=== PATIENT | male | born 1950 | race Two or more races ===

== ENCOUNTER 2017-09-11 07:31 | Emergency (ER) | payer OTHER ==
[2017-09-11] MEDS: HYDROcodone/APAP 5/325MG 1 TAB TABLET PO (08:32)
[2017-09-11] MEDS: diazePAM 5 MG TABLET PO (08:32)
[2017-09-11] MEDS: KETOROLAC 60 MG/2 ML INJ. IM (08:33)
== END 2017-09-11 08:53 | disposition home or self-care (01) ==
LOC: ER 07:31
DX: S39.012A Strain of muscle, fascia and tendon of lower back, initial encounter (principal); I10 Essential (primary) hypertension; E78.00 Pure hypercholesterolemia, unspecified; E11.9 Type 2 diabetes mellitus without complications; F17.200 Nicotine dependence, unspecified, uncomplicated; X50.9XXA Other and unspecified overexertion or strenuous movements or postures, initial encounter; Y93.89 Activity, other specified; Y99.8 Other external cause status; Y92.89 Other specified places as the place of occurrence of the external cause
CPT/HCPCS: 96372; 99283-25; J1885

== ENCOUNTER 2018-05-28 15:04 | Inpatient (IN) | payer OTHER ==
[~2018-05-28] VITALS: Ht 177.8 cm; Wt 95.3 kg
[~2018-05-28 15:04] MED LIST: DIAZ5TAB PO; DICL50TA4 PO
--- NOTE | 2018-05-28 15:46 | PHYS DOC ---
Past Medical History Past Medical History: Diabetes-Type II, High Cholesterol, Hypertension Past Surgical History: Other Additional Past Surgical Histo: uvula, nasal-diviated septum Alcohol Use: Rarely Drug Use: None Adult General Chief Complaint Chief Complaint: CHEST PAIN HPI HPI 67 y/o male presents to ER for c/o lt side chest throbbing radiating into his lt arm for 3-4 days. He reports pain increases with lifting of lt arm. He denies injury/falls. He reports he has been shoveling snow multiple times in past week. He denies SOA, fever, N/V/D, abd pain, or urinary sxs. He reports he has had frontal BUSCH denying eye pain, dizziness, or light headedness. He reports last wk he did have lt ear pressure- denies pain or pressure currently. He denies recent illness. Pt reports he is daily smoker <1ppd cigarettes. He reports occasional drinker- had a couple drinks on . Pt flew to [place] last month. 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 Review of Systems Review of Systems Constitutional: Denies fever or chills. Denies fatigue Eyes: Denies change in visual acuity, redness, or eye pain [] HENT: Denies nasal congestion or sore throat [] Respiratory: Denies cough or shortness of breath [] Cardiovascular: Lt side chest throbbing radiating into lt arm GI: Denies abdominal pain, nausea, vomiting, bloody stools or diarrhea [] : Denies dysuria or hematuria [] Musculoskeletal: Denies back/neck pain. Reports lt arm pain which increases with ROM Integument: Denies rash, swelling or skin lesions [] Neurologic: Denies headache, focal weakness or sensory changes [] Endocrine: Denies polyuria or polydipsia [] All other systems were reviewed and found to be within normal limits, except as documented in this note. Current Medications Current Medications Current Medications Medications (Trade) Dose Ordered Sig/Martha Start Time Stop Time Status Last Admin Dose Admin Acetaminophen (Tylenol) 650 mg 1X ONCE 05/28/18 16:00 05/28/18 16:01 DC 05/28/18 16:23 650 MG Sodium Chloride 500 ml @ 500 mls/hr 1X ONCE 05/28/18 16:00 05/28/18 16:59 DC 05/28/18 16:00 500 MLS/HR Allergies Allergies Allergies Coded Allergies Type Severity Reaction Last Updated Verified No Known Drug Allergies 08/02/14 No Physical Exam Physical Exam Constitutional: Well developed, well nourished, no acute distress, non-toxic appearance. Clear speech HENT: Normocephalic, atraumatic, bilateral ears normal, oropharynx moist- no pharyngeal erythema- pt has had uvulectomy, nose normal. [] Eyes: 3mm PERRLA, no nystagmus, conjunctiva normal, no discharge. [] Neck: Normal range of motion, no tenderness, supple, no stridor. [] Cardiovascular: Bradycardic heart rate regular rhythm- pt reports HR is typically low 50s, no murmur [] Lungs & Thorax: Bilateral breath sounds clear to auscultation. Resp. equal/ nonlabored Abdomen: Bowel sounds normal, soft, no tenderness Skin: Warm, dry, no erythema, no rash. [] Back: No tenderness, no CVA tenderness. [] Extremities: No tenderness on palp. with ROM of lt arm he reports pain with movement in lt anterior/axillary, no cyanosis, no clubbing, ROM intact, no edema. 2+ bilat. radial. 2+ dorsalis pedis/posterior tibial Neurologic: Alert and oriented X 3, normal motor function, normal sensory function, no focal deficits noted. [] Psychologic: Affect normal, judgement normal, mood normal. [] Current Patient Data Vital Signs Vital Signs Date Time Temp Pulse Resp B/P (MAP) Pulse Ox O2 Delivery O2 Flow Rate FiO2 05/28/18 16:19 44 145/83 (103) 99 Room Air Lab Values Laboratory Tests Test 05/28/18 15:20 White Blood Count 6.2 x10^3/uL (4.0-11.0) Red Blood Count 4.80 x10^6/uL (4.30-5.70) Hemoglobin 14.7 g/dL (13.0-17.5) Hematocrit 44.4 % (39.0-53.0) Mean Corpuscular Volume 93 fL (79-100) Mean Corpuscular Hemoglobin 31 pg (25-35) Mean Corpuscular Hemoglobin Concent 33 g/dL (31-37) Red Cell Distribution Width 13.2 % (11.5-14.5) Platelet Count 214 x10^3/uL (140-400) Neutrophils (%) (Auto) 55 % (31-73) Lymphocytes (%) (Auto) 33 % (24-48) Monocytes (%) (Auto) 8 % (0-9) Eosinophils (%) (Auto) 4 % (0-3) H Basophils (%) (Auto) 1 % (0-3) Neutrophils # (Auto) 3.4 x10^3uL (1.8-7.7) Lymphocytes # (Auto) 2.0 x10^3/uL (1.0-4.8) Monocytes # (Auto) 0.5 x10^3/uL (0.0-1.1) Eosinophils # (Auto) 0.2 x10^3/uL (0.0-0.7) Basophils # (Auto) 0.1 x10^3/uL (0.0-0.2) D-Dimer (Sussy) < 0.27 ug/mlFEU Sodium Level 142 mmol/L (136-145) Potassium Level 4.0 mmol/L (3.5-5.1) Chloride Level 104 mmol/L (98-107) Carbon Dioxide Level 28 mmol/L (21-32) Anion Gap 10 (6-14) Blood Urea Nitrogen 16 mg/dL (8-26) Creatinine 1.1 mg/dL (0.7-1.3) Estimated GFR (Cockcroft-Gault) 66.8 BUN/Creatinine Ratio 15 (6-20) Glucose Level 106 mg/dL (70-99) H Calcium Level 9.5 mg/dL (8.5-10.1) Magnesium Level 1.9 mg/dL (1.8-2.4) Total Bilirubin 0.5 mg/dL (0.2-1.0) Aspartate Amino Transferase (AST) 17 U/L (15-37) Alanine Aminotransferase (ALT) 29 U/L (16-63) Alkaline Phosphatase 87 U/L (46-116) Creatine Kinase 122 U/L (39-308) Creatine Kinase MB (Mass) 0.7 ng/mL (0.0-3.6) Creatine Kinase MB Relative Index 0.6 % (0-4) Troponin I Quantitative < 0.017 ng/mL (0.000-0.055) Total Protein 7.1 g/dL (6.4-8.2) Albumin 4.0 g/dL (3.4-5.0) Albumin/Globulin Ratio 1.3 (1.0-1.7) Laboratory Tests 05/28/18 15:20 Laboratory Tests 05/28/18 15:20 EKG EKG EKG obtained 05/28/18 at [address] Lemus Sinus bradycardia Rate 54 No STEMI Radiology/Procedures Radiology/Procedures [PROCEDURE: CHEST PA & LATERAL Chest, PA and Lateral: Technique: PA and lateral views of the chest were obtained. History: Headache, left-sided chest pain. Comparison: None. Findings: The heart and pulmonary vasculature appear within normal limits. The lungs are clear. The pleural margins are clear. Impression: No acute chest process is seen. Electronically signed by: Papo Cortes MD (05/28/2018 4:09 PM) [facility] DICTATED and SIGNED BY: PAPO CORTES MD DATE: 05/28/18 160 Course & Med Decision Making Course & Med Decision Making Pertinent Labs and Imaging studies reviewed. (See chart for details) 1635: Pt was evaluated in the ER for c/o lt side chest throbbing which radiated into his lt arm which has been ongoing for past 3-4 days. Upon entering room found pt's HR in low to mid 40's he is denying any complaints- denies CP, palpitations, weakness, or fatigue. Discussed test results with pt and his ; EKG with no acute ST elevation/STEMI and troponin <0.017; DDimer was <0.27; chest xray with no acute findings. Other labs unremarkable. Discussed admission for further care and evaluation- pt is agreeable with plan. 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 Pt at time of discussion was in no visible distress. Will discuss pt's case with hospitalist and admit to their services for further care. Heart score 4. Hx of HTN, DM II, elevated cholesterol, and he is a smoker. 1649: Spoke with Dr. Camarena, hospitalist and discussed pt's case and admit plan. Will consult cardiology with admit orders. Dragon Disclaimer Dragon Disclaimer This electronic medical record was generated, in whole or in part, using a voice recognition dictation system. Departure Departure Impression: Primary Impression: Chest pain Disposition: ADMITTED INPATIENT Admitting Physician: Allyssa Camarena Condition: STABLE Referrals: SERENE ABDULLAHI (PCP) VIRAL HOBBS APRN May 28, 2018 15:46
[2018-05-28 15:56] LABS: BASO # 0.1 x10^3/uL (0.0-0.2); BASO % 1 % (0-3); EOS # 0.2 x10^3/uL (0.0-0.7); EOS % 4 % (0-3); HEMATOCRIT 44.4 % (39.0-53.0); HEMOGLOBIN 14.7 g/dL (13.0-17.5); LYMPH % 33 % (24-48); MEAN CORPUSCULAR HEMOGLOBIN 31 pg (25-35); MEAN CORPUSCULAR HGB CONC 33 g/dL (31-37); MEAN CORPUSCULAR VOLUME 93 fL (79-100); MONO # 0.5 x10^3/uL (0.0-1.1); MONO % 8 % (0-9); NEUT # 3.4 x10^3uL (1.8-7.7); NEUT % 55 % (31-73); PLATELET COUNT 214 x10^3/uL (140-400); RED CELL DISTRIBUTION WIDTH 13.2 % (11.5-14.5); WHITE BLOOD COUNT 6.2 x10^3/uL (4.0-11.0)
[2018-05-28] MEDS ORDERED: IV NORMAL SALINE 500ML BAG 500 ML IV ONE (16:00)
[2018-05-28] MEDS ORDERED: ACETAMINOPHEN 325 MG TABLET. PO ONE (16:00)
[2018-05-28 16:04] LABS: CALCIUM 9.5 mg/dL (8.5-10.1); CREATININE 1.1 mg/dL (0.7-1.3); GFR 66.8
[2018-05-28 16:09] LABS: ALBUMIN/GLOBULIN RATIO 1.3 (1.0-1.7); MAGNESIUM 1.9 mg/dL (1.8-2.4); TOTAL BILIRUBIN 0.5 mg/dL (0.2-1.0); TOTAL PROTEIN 7.1 g/dL (6.4-8.2)
--- NOTE | 2018-05-28 16:12 | RAD ---
Chest, PA and Lateral: Technique: PA and lateral views of the chest were obtained. History: Headache, left-sided chest pain. Comparison: None. Findings: The heart and pulmonary vasculature appear within normal limits. The lungs are clear. The pleural margins are clear. Impression: No acute chest process is seen. Electronically signed by: Papo Cortes MD (05/28/2018 4:09 PM) [place] [id number]
[2018-05-28 19:50] VITALS: BP 172/92
--- NOTE | 2018-05-28 21:39 | PDOC1 ---
History and Physical Date of Admission Date of Admission DATE: 05/28/18 TIME: 21:37 Source Source: Chart review, Patient History of Present Illness History of Present Illness Mr. Mejia, is a 67 y/o male admit with new chest pain, today, he had side chest throbbing radiating to his arm. Pain worse today, has happened over prior few days at times, worse with using the arm, maybe with random exertion. Most pain while shoveling snow. He denies injury/falls. denies SOA, fever, N/V/D, abd pain, or urinary sxs Pt reports he is daily smoker <1ppd cigarettes. he has been retired from the [employer] for 19 years, s/p right eye injury Social History Smoke: <1 pack per day ALCOHOL: social Drugs: None Current Medications Current Medications Current Medications Acetaminophen (Tylenol) 650 mg 1X ONCE PO Last administered on 05/28/18at 16:23 ; Start 05/28/18 at 16:00; Stop 05/28/18 at 16:01; Status DC Sodium Chloride 500 ml @ 500 mls/hr 1X ONCE IV Last administered on at 16:00; Start 05/28/18 at 16:00; Stop 05/28/18 at 16:59; Status DC Active Scripts Active Diclofenac Sodium 50 Mg Tablet.dr 1 Tab PO BID Valium (Diazepam) 5 Mg Tablet 5 Mg PO TID Allergies Allergies: Coded Allergies: No Known Drug Allergies (Unverified , 08/02/14) ROS General: No: Chills, Night Sweats, Fatigue, Malaise, Appetite, Other PSYCHOLOGICAL ROS: No: Anxiety, Behavioral Disorder, Concentration difficultie , Decreased libido, Depression, Disorientation, Hallucinations, Hostility, Irritablity, Memory difficulties, Mood Swings, Obsessive thoughts, Physical abuse, Sexual abuse, Sleep disturbances, Suicidal ideation, Other Eyes: No Blurry vision, No Decreased vision, No Double vision, No Dry eyes, No Excessive tearing, No Eye Pain, No Itchy Eyes, No Loss of vision, No Photophobia , No Scotomata, No Uses contacts, No Uses glasses, No Other HEENT: No: Heacaches, Visual Changes, Hearing change, Nasal congestion, Nasal discharge, Oral lesions, Sinus pain, Sore Throat, Epistaxis, Sneezing, Snoring, Tinnitus, Vertigo, Vocal changes, Other Respiratory: No: Cough, Hemoptysis, Orthopnea, Pleuritic Pain, Shortness of breath, SOB with excertion, Sputum Changes, Stridor, Tachypnea, Wheezing, Other Cardiovascular: yes Chest Pain; No Palpitations, No Orthopnea, No Paroxysmal Noc. Dyspnea, No Edema, No Lt Headedness Gastrointestinal: No Nausea, No Vomiting, No Abdominal Pain, No Diarrhea, No Constipation, No Melena, No Hematochezia, No Other Genitourinary: No Dysuria, No Frequency, No Incontinence, No Hematuria, No Retention, No Discharge, No Urgency, No Pain, No Flank Pain, No Other, No , No , No , No , No , No , No Musculoskeletal: No Gait Disturbance, No Joint Pain, No Joint Stiffness, No Joint Swelling, No Muscle Pain, No Muscular Weakness, No Pain In:, No Swelling In:, No Other Neurological: No Behavorial Changes, No Bowel/Bladder ControlChng, No Confusion , No Dizziness, No Gait Disturbance, No Headaches, No Impaired Coord/balance, No Memory Loss, No Numbness/Tingling, No Seizures, No Speech Problems, No Tremors, No Visual Changes, No Weakness, No Other Skin: No Dry Skin, No Eczema, No Hair Changes, No Lumps, No Mole Changes, No Mottling, No Nail Changes, No Pruritus, No Rash, No Skin Lesion Changes, No Other, No Acne Physical Exam General: Alert, Oriented X3, Cooperative, No acute distress HEENT: Atraumatic, PERRLA, Mucous membr. moist/pink Lungs: Clear to auscultation, Normal air movement Heart: S1S2, no gallops, no murmurs Abdomen: Normal bowel sounds, Soft Extremities: No clubbing, No edema, Normal pulses Skin: No rashes Neuro: Normal gait, Normal speech, Normal tone, Sensation intact, Cranial nerves 3-12 NL Psych/Mental Status: Mental status NL, Mood NL Vitals Vitals Vital Signs Date Time Temp Pulse Resp B/P (MAP) Pulse Ox O2 Delivery O2 Flow Rate FiO2 05/28/18 17:49 44 16 150/90 (110) 100 Room Air 05/28/18 17:08 98.6 98.6 Labs Labs Laboratory Tests Test 05/28/18 15:20 2/18/19 20:10 White Blood Count 6.2 x10^3/uL (4.0-11.0) Red Blood Count 4.80 x10^6/uL (4.30-5.70) Hemoglobin 14.7 g/dL (13.0-17.5) Hematocrit 44.4 % (39.0-53.0) Mean Corpuscular Volume 93 fL (79-100) Mean Corpuscular Hemoglobin 31 pg (25-35) Mean Corpuscular Hemoglobin Concent 33 g/dL (31-37) Red Cell Distribution Width 13.2 % (11.5-14.5) Platelet Count 214 x10^3/uL (140-400) Neutrophils (%) (Auto) 55 % (31-73) Lymphocytes (%) (Auto) 33 % (24-48) Monocytes (%) (Auto) 8 % (0-9) Eosinophils (%) (Auto) 4 % (0-3) Basophils (%) (Auto) 1 % (0-3) Neutrophils # (Auto) 3.4 x10^3uL (1.8-7.7) Lymphocytes # (Auto) 2.0 x10^3/uL (1.0-4.8) Monocytes # (Auto) 0.5 x10^3/uL (0.0-1.1) Eosinophils # (Auto) 0.2 x10^3/uL (0.0-0.7) Basophils # (Auto) 0.1 x10^3/uL (0.0-0.2) D-Dimer (Sussy) < 0.27 ug/mlFEU Sodium Level 142 mmol/L (136-145) Potassium Level 4.0 mmol/L (3.5-5.1) Chloride Level 104 mmol/L (98-107) Carbon Dioxide Level 28 mmol/L (21-32) Anion Gap 10 (6-14) Blood Urea Nitrogen 16 mg/dL (8-26) Creatinine 1.1 mg/dL (0.7-1.3) Estimated GFR (Cockcroft-Gault) 66.8 BUN/Creatinine Ratio 15 (6-20) Glucose Level 106 mg/dL (70-99) Calcium Level 9.5 mg/dL (8.5-10.1) Magnesium Level 1.9 mg/dL (1.8-2.4) Total Bilirubin 0.5 mg/dL (0.2-1.0) Aspartate Amino Transf (AST/SGOT) 17 U/L (15-37) Alanine Aminotransferase (ALT/SGPT) 29 U/L (16-63) Alkaline Phosphatase 87 U/L (46-116) Creatine Kinase 122 U/L (39-308) Creatine Kinase MB (Mass) 0.7 ng/mL (0.0-3.6) Creatine Kinase MB Relative Index 0.6 % (0-4) Troponin I Quantitative < 0.017 ng/mL (0.000-0.055) < 0.017 ng/mL (0.000-0.055) Total Protein 7.1 g/dL (6.4-8.2) Albumin 4.0 g/dL (3.4-5.0) Albumin/Globulin Ratio 1.3 (1.0-1.7) Laboratory Tests Test 05/28/18 15:20 05/28/18 20:10 White Blood Count 6.2 x10^3/uL (4.0-11.0) Red Blood Count 4.80 x10^6/uL (4.30-5.70) Hemoglobin 14.7 g/dL (13.0-17.5) Hematocrit 44.4 % (39.0-53.0) Mean Corpuscular Volume 93 fL (79-100) Mean Corpuscular Hemoglobin 31 pg (25-35) Mean Corpuscular Hemoglobin Concent 33 g/dL (31-37) Red Cell Distribution Width 13.2 % (11.5-14.5) Platelet Count 214 x10^3/uL (140-400) Neutrophils (%) (Auto) 55 % (31-73) Lymphocytes (%) (Auto) 33 % (24-48) Monocytes (%) (Auto) 8 % (0-9) Eosinophils (%) (Auto) 4 % (0-3) Basophils (%) (Auto) 1 % (0-3) Neutrophils # (Auto) 3.4 x10^3uL (1.8-7.7) Lymphocytes # (Auto) 2.0 x10^3/uL (1.0-4.8) Monocytes # (Auto) 0.5 x10^3/uL (0.0-1.1) Eosinophils # (Auto) 0.2 x10^3/uL (0.0-0.7) Basophils # (Auto) 0.1 x10^3/uL (0.0-0.2) D-Dimer (Sussy) < 0.27 ug/mlFEU Sodium Level 142 mmol/L (136-145) Potassium Level 4.0 mmol/L (3.5-5.1) Chloride Level 104 mmol/L (98-107) Carbon Dioxide Level 28 mmol/L (21-32) Anion Gap 10 (6-14) Blood Urea Nitrogen 16 mg/dL (8-26) Creatinine 1.1 mg/dL (0.7-1.3) Estimated GFR (Cockcroft-Gault) 66.8 BUN/Creatinine Ratio 15 (6-20) Glucose Level 106 mg/dL (70-99) Calcium Level 9.5 mg/dL (8.5-10.1) Magnesium Level 1.9 mg/dL (1.8-2.4) Total Bilirubin 0.5 mg/dL (0.2-1.0) Aspartate Amino Transf (AST/SGOT) 17 U/L (15-37) Alanine Aminotransferase (ALT/SGPT) 29 U/L (16-63) Alkaline Phosphatase 87 U/L (46-116) Creatine Kinase 122 U/L (39-308) Creatine Kinase MB (Mass) 0.7 ng/mL (0.0-3.6) Creatine Kinase MB Relative Index 0.6 % (0-4) Troponin I Quantitative < 0.017 ng/mL (0.000-0.055) < 0.017 ng/mL (0.000-0.055) Total Protein 7.1 g/dL (6.4-8.2) Albumin 4.0 g/dL (3.4-5.0) Albumin/Globulin Ratio 1.3 (1.0-1.7) VTE Prophylaxis Ordered VTE Prophylaxis Devices: No VTE Pharmacological Prophylaxi: Yes Assessment/Plan Assessment/Plan chest pain with pressure angina tobacco use disorder htn, hyperlipids sinus jodie admit RYAN SAMUELS MD May 28, 2018 21:39
[2018-05-28] MEDS ORDERED: NICOTINE 14MG PATCH. TD PRN (21:45)
[2018-05-28 22:43] VITALS: BP 126/70
[2018-05-28] MEDS ORDERED: losartan (23:36)
[2018-05-28] MEDS ORDERED: ATOR (23:36)
[2018-05-28] MEDS ORDERED: METF100010 PO (23:36)
[2018-05-29] MEDS ORDERED: traMADol 50 MG TABLET PO PRN (01:15)
[2018-05-29 03:37] VITALS: BP 119/71
[2018-05-29 04:14] LABS: BASO # 0.1 x10^3/uL (0.0-0.2); BASO % 1 % (0-3); EOS # 0.3 x10^3/uL (0.0-0.7); EOS % 4 % (0-3); HEMATOCRIT 40.6 % (39.0-53.0); HEMOGLOBIN 13.4 g/dL (13.0-17.5); LYMPH # 2.8 x10^3/uL (1.0-4.8); LYMPH % 41 % (24-48); MEAN CORPUSCULAR HEMOGLOBIN 31 pg (25-35); MEAN CORPUSCULAR HGB CONC 33 g/dL (31-37); MEAN CORPUSCULAR VOLUME 93 fL (79-100); MONO # 0.6 x10^3/uL (0.0-1.1); MONO % 8 % (0-9); NEUT # 3.2 x10^3uL (1.8-7.7); NEUT % 46 % (31-73); PLATELET COUNT 188 x10^3/uL (140-400); RED BLOOD COUNT 4.34 x10^6/uL (4.30-5.70); RED CELL DISTRIBUTION WIDTH 13.4 % (11.5-14.5)
[2018-05-29 04:35] LABS: CALCIUM 8.8 mg/dL (8.5-10.1); CREATININE 1.1 mg/dL (0.7-1.3); GFR 66.8; POTASSIUM 3.9 mmol/L (3.5-5.1)
[2018-05-29 07:00] VITALS: BP 118/65
--- NOTE | 2018-05-29 08:20 | EKG ---
[facility] [address] [place] [address] Test Date: 2018-05-28 Test Time: 15:17:07 Pat Name: NOAH MILIAN Department: Room: 261 1 Gender: Lap Maker: : [id number] Requested By: VIRAL HOBBS Order Number: [id number] Reading MD: Vega Norris Measurements Intervals [place] Rate: P: IL: QRS: QRSD: T: QT: QTc: Interpretive Statements No previous ECG available for comparison Electronically Signed On 05-30-2018 9:08:15 ATHLETIC FIELD CUSTODIAN by Vega Norris
[2018-05-29 09:05] LABS: CHOLESTEROL/HDL RATIO 2.9
--- NOTE | 2018-05-29 09:13 | PDOC2 ---
ENO[facility] REYNOLDS MEDICATION TECH 05/29/18 0913: CARDIAC CONSULT DATE OF CONSULT Date of Consult DATE: 05/29/18 TIME: 08:54 REASON FOR CONSULT Reason for Consult: chest pain REFERRING PHYSICIAN Referring Physician: Gumaro SOURCE Source: Chart review, Patient HISTORY OF PRESENT ILLNESS HISTORY OF PRESENT ILLNESS This is a pleasant 67 yo male admitted for complains of high BP, BUSCH and chest discomfort. 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 Monday and Monday he was having throbbing frontal BUSCH and was checked by PCP and was told of possible sinusitis. No decongestants use. Also he finally purchased a BP monitor and noted his BP at 197/104 around that range. He takes losartan only for HTN. He also has PAWEL many yrs ago to which he used CPAP but stopped using it due to septal deviation and had uvulectomy and septal surgery but never got restarted back on CPAP. Reports no recent heavy lifting, LOERA, exertional CP. He did have last night some throbbing left chest discomfort and also to his left shoulder and arm but no other associated symptoms and his BP was high at that time. He is known for asymptomatic SB and no symptoms of dizziness or passing out. He also has DM current smoker. PAST MEDICAL HISTORY Cardiovascular: HTN, Other Pulmonary: Other (PAWEL) CENTRAL NERVOUS SYSTEM: Other (No pertinent history) GI: GERD Heme/Onc: No pertinent hx Hepatobiliary: No pertinent hx Psych: No pertinent hx Musculoskeletal: Osteoarthritis Rheumatologic: No pertinent hx Infectious disease: No pertinent hx ENT: Sincusitis Renal/: No pertinent hx Endocrine: Diabetes (2) Dermatology: No pertinent hx PAST SURGICAL HISTORY Past Surgical History: Tonsillectomy, Other (nasal septum repair; uvulectomy) FAMILY HISTORY Family History noncontributory SOCIAL HISTORY Smoke: <1 pack per day (>30 yrs) ALCOHOL: none Drugs: None Lives: with Family CURRENT MEDICATIONS CURRENT MEDICATIONS Current Medications Medications (Trade) Dose Ordered Sig/Martha Route PRN Reason Start Time Stop Time Status Last Admin Dose Admin Acetaminophen (Tylenol) 650 mg 1X ONCE PO 05/28/18 16:00 05/28/18 16:01 DC 05/28/18 16:23 Sodium Chloride 500 ml @ 500 mls/hr 1X ONCE IV 05/28/18 16:00 05/28/18 16:59 DC 05/28/18 16:00 Tramadol HCl (Ultram) 50 mg PRN Q6HRS PRN PO MODERATE PAIN 05/29/18 01:15 05/29/18 01:21 ALLERGIES ALLERGIES: Coded Allergies: No Known Drug Allergies (Unverified , 08/02/14) ROS Review of System 14 point ROS evaluated with pertinent positives noted per HPI PHYSICAL EXAM General: Alert, Oriented X3, Cooperative, No acute distress HEENT: Atraumatic, Mucous membr. moist/pink Lungs: Clear to auscultation, Normal air movement Heart: Regular rate (SB 50s), Normal S1, Normal S2, No murmurs Abdomen: Soft, No tenderness Extremities: No cyanosis, No edema Skin: No breakdown, No significant lesion Neuro: Normal speech, Sensation intact Psych/Mental Status: Mental status NL, Mood NL MUSCULOSKELETAL: Osteoarthritic changes both hands VITALS VITALS Vital Signs Date Time Temp Pulse Resp B/P (MAP) Pulse Ox O2 Delivery O2 Flow Rate FiO2 05/29/18 07:00 97.9 53 18 118/65 (82) 98 Room Air 97.9 LABS Lab: Laboratory Tests Test 05/28/18 15:20 05/28/18 20:10 05/28/18 23:05 05/29/18 03:30 White Blood Count 6.2 x10^3/uL (4.0-11.0) 7.0 x10^3/uL (4.0-11.0) Red Blood Count 4.80 x10^6/uL (4.30-5.70) 4.34 x10^6/uL (4.30-5.70) Hemoglobin 14.7 g/dL (13.0-17.5) 13.4 g/dL (13.0-17.5) Hematocrit 44.4 % (39.0-53.0) 40.6 % (39.0-53.0) Mean Corpuscular Volume 93 fL (79-100) 93 fL (79-100) Mean Corpuscular Hemoglobin 31 pg (25-35) 31 pg (25-35) Mean Corpuscular Hemoglobin Concent 33 g/dL (31-37) 33 g/dL (31-37) Red Cell Distribution Width 13.2 % (11.5-14.5) 13.4 % (11.5-14.5) Platelet Count 214 x10^3/uL (140-400) 188 x10^3/uL (140-400) Neutrophils (%) (Auto) 55 % (31-73) 46 % (31-73) Lymphocytes (%) (Auto) 33 % (24-48) 41 % (24-48) Monocytes (%) (Auto) 8 % (0-9) 8 % (0-9) Eosinophils (%) (Auto) 4 % (0-3) 4 % (0-3) Basophils (%) (Auto) 1 % (0-3) 1 % (0-3) Neutrophils # (Auto) 3.4 x10^3uL (1.8-7.7) 3.2 x10^3uL (1.8-7.7) Lymphocytes # (Auto) 2.0 x10^3/uL (1.0-4.8) 2.8 x10^3/uL (1.0-4.8) Monocytes # (Auto) 0.5 x10^3/uL (0.0-1.1) 0.6 x10^3/uL (0.0-1.1) Eosinophils # (Auto) 0.2 x10^3/uL (0.0-0.7) 0.3 x10^3/uL (0.0-0.7) Basophils # (Auto) 0.1 x10^3/uL (0.0-0.2) 0.1 x10^3/uL (0.0-0.2) D-Dimer (Sussy) < 0.27 ug/mlFEU Sodium Level 142 mmol/L (136-145) 142 mmol/L (136-145) Potassium Level 4.0 mmol/L (3.5-5.1) 3.9 mmol/L (3.5-5.1) Chloride Level 104 mmol/L (98-107) 106 mmol/L (98-107) Carbon Dioxide Level 28 mmol/L (21-32) 26 mmol/L (21-32) Anion Gap 10 (6-14) 10 (6-14) Blood Urea Nitrogen 16 mg/dL (8-26) 21 mg/dL (8-26) Creatinine 1.1 mg/dL (0.7-1.3) 1.1 mg/dL (0.7-1.3) Estimated GFR (Cockcroft-Gault) 66.8 66.8 BUN/Creatinine Ratio 15 (6-20) Glucose Level 106 mg/dL (70-99) 95 mg/dL (70-99) Calcium Level 9.5 mg/dL (8.5-10.1) 8.8 mg/dL (8.5-10.1) Magnesium Level 1.9 mg/dL (1.8-2.4) Total Bilirubin 0.5 mg/dL (0.2-1.0) Aspartate Amino Transf (AST/SGOT) 17 U/L (15-37) Alanine Aminotransferase (ALT/SGPT) 29 U/L (16-63) Alkaline Phosphatase 87 U/L (46-116) Creatine Kinase 122 U/L (39-308) Creatine Kinase MB (Mass) 0.7 ng/mL (0.0-3.6) Creatine Kinase MB Relative Index 0.6 % (0-4) Troponin I Quantitative < 0.017 ng/mL (0.000-0.055) < 0.017 ng/mL (0.000-0.055) < 0.017 ng/mL (0.000-0.055) Total Protein 7.1 g/dL (6.4-8.2) Albumin 4.0 g/dL (3.4-5.0) Albumin/Globulin Ratio 1.3 (1.0-1.7) ASSESSMENT/PLAN ASSESSMENT/PLAN 1. Atypical CP: METS>10. Trops nml and EKG SR without acute changes. Pain likely from labile BP 2. HTN: labile noted at home at 197/104. BP currently controlled 3. BUSCH: noted sinus congestion with elevated BP. 4. DM2: BG on goal with metformin 5. Tobaccoism 6. Hx of PAWEL: with past septal repair and uvulectomy. 7. Obesity 8. Asymptomatic SB: mean mid 50s mid 40s lowest when asleep. no pauses or blocks. this is known per hx. Recommendations 1. Will consider adding low dose HCTZ or chlorthalidone to home losartan pending BP trend.. Discussed bid HBPM for at least a week and to call if outside parameters. 2. Checked TSH, lipids. TTE today and if no significant changes then may DC to home and plan for outpt stress test with significant ASCVD risk factors 3. Consider outpt PAWEL reeval. 4. ECASA 81 mg to start 5. Dietitian for DASH diet, wt loss. 6. ambulatory BP check in a week with BP diary. 7. Smoking cessation REBECA PANDEY MD 05/29/18 1640: CARDIAC CONSULT ASSESSMENT/PLAN ASSESSMENT/PLAN Patient seen and examined agree with above nurse practitioner note. Noncardiac chest pain. Bradycardia is a symptomatically. Echocardiogram unremarkable. Continue risk factor modification. Supportive care. ENOCH REYNOLDS APRN May 29, 2018 09:13 REBECA PANDEY MD May 29, 2018 16:40
[2018-05-29] MEDS ORDERED: LOSA100T14 PO (09:24)
[2018-05-29] MEDS ORDERED: LIPITOR80 MG PO (09:24)
[2018-05-29] MEDS ORDERED: ASPIRIN ENTERIC COATED 81 MG TABLET.DR. PO SCH (10:00)
[2018-05-29] MEDS ORDERED: metFORMIN XR 500 MG TAB.ER.24H PO SCH (10:30)
[2018-05-29 11:00] VITALS: BP 114/65
[2018-05-29] MEDS ORDERED: LOSARTAN POTASSIUM 50 MG TABLET. PO SCH (11:00)
--- NOTE | 2018-05-29 13:06 | CARD ---
MR#: [id number] Date of Study: 05/29/2018 Ordering Physician: ENOCH REYNOLDS, Referring Physician: RYAN SAMUELS Tech: Fariha Herron RDCS APPROVED REPORT EXAM: Two-dimensional and M-mode echocardiogram with Doppler and color Doppler. Other Information Quality : Technically LimitedHR: 50bpm Rhythm : BradycardiaTechnically limited study due to body habitus. INDICATION Chest Pain 2D DIMENSIONS RVDd4.0 (2.9-3.5cm)Left Atrium(2D)3.5 (1.6-4.0cm) IVSd0.9 (0.7-1.1cm)Aortic Root(2D)3.5 (2.0-3.7cm) LVDd5.2 (3.9-5.9cm)LVOT Diameter2.1 (1.8-2.4cm) PWd1.0 (0.7-1.1cm)LVDs2.7 (2.5-4.0cm) FS (%) 48.7 %SV103.9 ml M-Mode DIMENSIONS Left Atrium(MM)3.92 (2.5-4.0cm)Aortic Root3.64 (2.2-3.7cm) Aortic Valve AoV Peak Munir.143.6cm/sAoV VTI29.9cm AO Peak GR.8.2mmHgLVOT Peak Munir.92.1cm/s AO Mean GR.5mmHgAVA (VMAX)2.19cm2 PAUL (VTI)2.20cm2 Mitral Valve MV E Omvuaoue85.1cm/sMV DECEL BMLY137uo MV A Kqobgcvf39.5cm/sE/A Ratio1.3 MV A Gqicxssv853kv Pulmonary Valve PV Peak Azmdloom30.1cm/s LEFT VENTRICLE The left ventricle is normal size. There is normal left ventricular wall thickness. The left ventricu lar systolic function is normal and the ejection fraction is within normal range. The Ejection Fracti on is 60-65%. There is normal LV segmental wall motion. Transmitral Doppler flow pattern is Grade II- pseudonormal filling dynamics. RIGHT VENTRICLE The right ventricle is normal size. There is normal right ventricular wall thickness. The right ventr icular systolic function is normal. ATRIA The left atrium size is normal. The right atrium size is normal. The interatrial septum is intact wit h no evidence for an atrial septal defect or patent foramen ovale as noted on 2-D or Doppler imaging. AORTIC VALVE The aortic valve is normal in structure and function. The aortic valve is trileaflet. Doppler and Col or Flow revealed no significant aortic regurgitation. There is no significant aortic valvular stenosi s. MITRAL VALVE The mitral valve is normal in structure and function. There is no evidence of mitral valve prolapse. There is no mitral valve stenosis. Doppler and Color-flow revealed trace mitral regurgitation. TRICUSPID VALVE The tricuspid valve is normal in structure and function. Doppler and Color Flow revealed no tricuspid valve regurgitation noted. There is no tricuspid valve prolapse or vegetation. There is no tricuspid valve stenosis. PULMONIC VALVE Pulmonic valve not well visualized. GREAT VESSELS The aortic root is normal in size. The ascending aorta is normal in size. The IVC is normal in size a nd collapses >50% with inspiration. PERICARDIAL EFFUSION There is no evidence of significant pericardial effusion. Critical Notification Critical Value: No <Conclusion> The left ventricle is normal size. The left ventricular systolic function is normal and the ejection fraction is within normal range. The Ejection Fraction is 60-65%. There is no significant aortic valvular stenosis. Doppler and Color Flow revealed no significant aortic regurgitation. Doppler and Color-flow revealed trace mitral regurgitation. Doppler and Color Flow revealed no tricuspid valve regurgitation noted. Signed by : Edward Fox MD Electronically Approved : 05/29/2018 13:06:28
--- NOTE | 2018-05-29 14:14 | NUR ---
SW following. Discussed with RN, RN advised no SW needs at this time. Possible discharge today pending echo results. SW will continue to follow.
--- NOTE | 2018-05-29 14:34 | PDOC3 ---
Discharge Summary Visit Information Date of Admission: May 28, 2018 Date of Discharge: May 29, 2018 Admitting Diagnosis: Chest pain Final Diagnosis Hypertensive urgency resolved chest discomfort secondary to the above DM type 2 non insulin requiring History fo dyslipidemia Brief Hospital Course Allergies Allergies Coded Allergies Type Severity Reaction Last Updated Verified No Known Drug Allergies 08/02/14 No Vital Signs Vital Signs Date Time Temp Pulse Resp B/P (MAP) Pulse Ox O2 Delivery O2 Flow Rate FiO2 05/29/18 11:00 98.3 56 18 114/65 (81) 95 Room Air 98.3 Lab Results Laboratory Tests Test 05/28/18 15:20 05/28/18 20:10 05/28/18 23:05 05/29/18 03:30 White Blood Count 6.2 x10^3/uL (4.0-11.0) 7.0 x10^3/uL (4.0-11.0) Red Blood Count 4.80 x10^6/uL (4.30-5.70) 4.34 x10^6/uL (4.30-5.70) Hemoglobin 14.7 g/dL (13.0-17.5) 13.4 g/dL (13.0-17.5) Hematocrit 44.4 % (39.0-53.0) 40.6 % (39.0-53.0) Mean Corpuscular Volume 93 fL (79-100) 93 fL (79-100) Mean Corpuscular Hemoglobin 31 pg (25-35) 31 pg (25-35) Mean Corpuscular Hemoglobin Concent 33 g/dL (31-37) 33 g/dL (31-37) Red Cell Distribution Width 13.2 % (11.5-14.5) 13.4 % (11.5-14.5) Platelet Count 214 x10^3/uL (140-400) 188 x10^3/uL (140-400) Neutrophils (%) (Auto) 55 % (31-73) 46 % (31-73) Lymphocytes (%) (Auto) 33 % (24-48) 41 % (24-48) Monocytes (%) (Auto) 8 % (0-9) 8 % (0-9) Eosinophils (%) (Auto) 4 % (0-3) 4 % (0-3) Basophils (%) (Auto) 1 % (0-3) 1 % (0-3) Neutrophils # (Auto) 3.4 x10^3uL (1.8-7.7) 3.2 x10^3uL (1.8-7.7) Lymphocytes # (Auto) 2.0 x10^3/uL (1.0-4.8) 2.8 x10^3/uL (1.0-4.8) Monocytes # (Auto) 0.5 x10^3/uL (0.0-1.1) 0.6 x10^3/uL (0.0-1.1) Eosinophils # (Auto) 0.2 x10^3/uL (0.0-0.7) 0.3 x10^3/uL (0.0-0.7) Basophils # (Auto) 0.1 x10^3/uL (0.0-0.2) 0.1 x10^3/uL (0.0-0.2) D-Dimer (Sussy) < 0.27 ug/mlFEU Sodium Level 142 mmol/L (136-145) 142 mmol/L (136-145) Potassium Level 4.0 mmol/L (3.5-5.1) 3.9 mmol/L (3.5-5.1) Chloride Level 104 mmol/L (98-107) 106 mmol/L (98-107) Carbon Dioxide Level 28 mmol/L (21-32) 26 mmol/L (21-32) Anion Gap 10 (6-14) 10 (6-14) Blood Urea Nitrogen 16 mg/dL (8-26) 21 mg/dL (8-26) Creatinine 1.1 mg/dL (0.7-1.3) 1.1 mg/dL (0.7-1.3) Estimated GFR (Cockcroft-Gault) 66.8 66.8 BUN/Creatinine Ratio 15 (6-20) Glucose Level 106 mg/dL (70-99) 95 mg/dL (70-99) Calcium Level 9.5 mg/dL (8.5-10.1) 8.8 mg/dL (8.5-10.1) Magnesium Level 1.9 mg/dL (1.8-2.4) Total Bilirubin 0.5 mg/dL (0.2-1.0) Aspartate Amino Transf (AST/SGOT) 17 U/L (15-37) Alanine Aminotransferase (ALT/SGPT) 29 U/L (16-63) Alkaline Phosphatase 87 U/L (46-116) Creatine Kinase 122 U/L (39-308) Creatine Kinase MB (Mass) 0.7 ng/mL (0.0-3.6) Creatine Kinase MB Relative Index 0.6 % (0-4) Troponin I Quantitative < 0.017 ng/mL (0.000-0.055) < 0.017 ng/mL (0.000-0.055) < 0.017 ng/mL (0.000-0.055) Total Protein 7.1 g/dL (6.4-8.2) Albumin 4.0 g/dL (3.4-5.0) Albumin/Globulin Ratio 1.3 (1.0-1.7) Triglycerides Level 100 mg/dL (0-150) Cholesterol Level 107 mg/dL (0-200) LDL Cholesterol, Calculated 50 mg/dL (0-100) VLDL Cholesterol, Calculated 20 mg/dL (0-40) Non-HDL Cholesterol Calculated 70 mg/dL (0-129) HDL Cholesterol 37 mg/dL (40-60) Cholesterol/HDL Ratio 2.9 Thyroid Stimulating Hormone (TSH) 2.423 uIU/mL (0.358-3.74) Laboratory Tests Test 05/28/18 15:20 05/28/18 20:10 05/28/18 23:05 05/29/18 03:30 White Blood Count 6.2 x10^3/uL (4.0-11.0) 7.0 x10^3/uL (4.0-11.0) Red Blood Count 4.80 x10^6/uL (4.30-5.70) 4.34 x10^6/uL (4.30-5.70) Hemoglobin 14.7 g/dL (13.0-17.5) 13.4 g/dL (13.0-17.5) Hematocrit 44.4 % (39.0-53.0) 40.6 % (39.0-53.0) Mean Corpuscular Volume 93 fL (79-100) 93 fL (79-100) Mean Corpuscular Hemoglobin 31 pg (25-35) 31 pg (25-35) Mean Corpuscular Hemoglobin Concent 33 g/dL (31-37) 33 g/dL (31-37) Red Cell Distribution Width 13.2 % (11.5-14.5) 13.4 % (11.5-14.5) Platelet Count 214 x10^3/uL (140-400) 188 x10^3/uL (140-400) Neutrophils (%) (Auto) 55 % (31-73) 46 % (31-73) Lymphocytes (%) (Auto) 33 % (24-48) 41 % (24-48) Monocytes (%) (Auto) 8 % (0-9) 8 % (0-9) Eosinophils (%) (Auto) 4 % (0-3) 4 % (0-3) Basophils (%) (Auto) 1 % (0-3) 1 % (0-3) Neutrophils # (Auto) 3.4 x10^3uL (1.8-7.7) 3.2 x10^3uL (1.8-7.7) Lymphocytes # (Auto) 2.0 x10^3/uL (1.0-4.8) 2.8 x10^3/uL (1.0-4.8) Monocytes # (Auto) 0.5 x10^3/uL (0.0-1.1) 0.6 x10^3/uL (0.0-1.1) Eosinophils # (Auto) 0.2 x10^3/uL (0.0-0.7) 0.3 x10^3/uL (0.0-0.7) Basophils # (Auto) 0.1 x10^3/uL (0.0-0.2) 0.1 x10^3/uL (0.0-0.2) D-Dimer (Sussy) < 0.27 ug/mlFEU Sodium Level 142 mmol/L (136-145) 142 mmol/L (136-145) Potassium Level 4.0 mmol/L (3.5-5.1) 3.9 mmol/L (3.5-5.1) Chloride Level 104 mmol/L (98-107) 106 mmol/L (98-107) Carbon Dioxide Level 28 mmol/L (21-32) 26 mmol/L (21-32) Anion Gap 10 (6-14) 10 (6-14) Blood Urea Nitrogen 16 mg/dL (8-26) 21 mg/dL (8-26) Creatinine 1.1 mg/dL (0.7-1.3) 1.1 mg/dL (0.7-1.3) Estimated GFR (Cockcroft-Gault) 66.8 66.8 BUN/Creatinine Ratio 15 (6-20) Glucose Level 106 mg/dL (70-99) 95 mg/dL (70-99) Calcium Level 9.5 mg/dL (8.5-10.1) 8.8 mg/dL (8.5-10.1) Magnesium Level 1.9 mg/dL (1.8-2.4) Total Bilirubin 0.5 mg/dL (0.2-1.0) Aspartate Amino Transf (AST/SGOT) 17 U/L (15-37) Alanine Aminotransferase (ALT/SGPT) 29 U/L (16-63) Alkaline Phosphatase 87 U/L (46-116) Creatine Kinase 122 U/L (39-308) Creatine Kinase MB (Mass) 0.7 ng/mL (0.0-3.6) Creatine Kinase MB Relative Index 0.6 % (0-4) Troponin I Quantitative < 0.017 ng/mL (0.000-0.055) < 0.017 ng/mL (0.000-0.055) < 0.017 ng/mL (0.000-0.055) Total Protein 7.1 g/dL (6.4-8.2) Albumin 4.0 g/dL (3.4-5.0) Albumin/Globulin Ratio 1.3 (1.0-1.7) Triglycerides Level 100 mg/dL (0-150) Cholesterol Level 107 mg/dL (0-200) LDL Cholesterol, Calculated 50 mg/dL (0-100) VLDL Cholesterol, Calculated 20 mg/dL (0-40) Non-HDL Cholesterol Calculated 70 mg/dL (0-129) HDL Cholesterol 37 mg/dL (40-60) Cholesterol/HDL Ratio 2.9 Thyroid Stimulating Hormone (TSH) 2.423 uIU/mL (0.358-3.74) Brief Hospital Course Mr. Milian, is a 67 y/o male admit with new chest pain, today, he had side chest throbbing radiating to his arm. Pain worse today, has happened over prior few days at times, worse with using the arm, maybe with random exertion. Most pain while shoveling snow. He denies injury/falls. denies SOA, fever, N/V/D, abd pain, or urinary sxs Pt reports he is daily smoker <1ppd cigarettes. he has been retired from the railroad for 19 years, s/p right eye injury Patient was evaluated by cardiology. He had an echocardiogram done with preserved ejection fraction. Results are as follows: Graft] IMAGING REPORT Signed PATIENT: NOAH MILIAN ACCOUNT: [id number] : 1950 LOCATION: [address] [place] [address] AGE: 67 SEX: M EXAM STATUS: ADM IN ORD. PHYSICIAN: ENOCH REYNOLDS APRN REASON: victor hugo simmons PROCEDURE: [id number] ECHOCARDIOGRAM MR#: [id number] Date of Study: 05/29/2018 Ordering Physician: ENOCH REYNOLDS, Referring Physician: Ana LIN: Fariha Herron RDCS APPROVED REPORT EXAM: Two-dimensional and M-mode echocardiogram with Doppler and color Doppler. Other Information Quality : Technically Limited HR: 50bpm Rhythm : Bradycardia Technically limited study due to body habitus. INDICATION Chest Pain 2D DIMENSIONS RVDd 4.0 (2.9-3.5cm) Left Atrium(2D) 3.5 (1.6-4.0cm) IVSd 0.9 (0.7-1.1cm) Aortic Root(2D) 3.5 (2.0-3.7cm) LVDd 5.2 (3.9-5.9cm) LVOT Diameter 2.1 (1.8-2.4cm) PWd 1.0 (0.7-1.1cm) LVDs 2.7 (2.5-4.0cm) FS (%) 48.7 % SV 103.9 ml M-Mode DIMENSIONS Left Atrium(MM) 3.92 (2.5-4.0cm) Aortic Root 3.64 (2.2-3.7cm) Aortic Valve AoV Peak Munir. 143.6cm/s AoV VTI 29.9cm AO Peak GR. 8.2mmHg LVOT Peak Munir. 92.1cm/s AO Mean GR. 5mmHg PAUL (VMAX) 2.19cm2 PAUL (VTI) 2.20cm2 Mitral Valve MV E Velocity 86.1cm/s MV DECEL TIME 182ms MV A Velocity 68.5cm/s E/A Ratio 1.3 MV A Duration 106ms Pulmonary Valve PV Peak Velocity 86.1cm/s LEFT VENTRICLE The left ventricle is normal size. There is normal left ventricular wall thickness. The left ventricular systolic function is normal and the ejection fraction is within normal range. The Ejection Fraction is 60-65%. There is normal LV segmental wall motion. Transmitral Doppler flow pattern is Grade II- pseudonormal filling dynamics. RIGHT VENTRICLE The right ventricle is normal size. There is normal right ventricular wall thickness. The right ventricular systolic function is normal. ATRIA The left atrium size is normal. The right atrium size is normal. The interatrial septum is intact with no evidence for an atrial septal defect or patent foramen ovale as noted on 2-D or Doppler imaging. AORTIC VALVE The aortic valve is normal in structure and function. The aortic valve is trileaflet. Doppler and Color Flow revealed no significant aortic regurgitation. There is no significant aortic valvular stenosis. MITRAL VALVE The mitral valve is normal in structure and function. There is no evidence of mitral valve prolapse. There is no mitral valve stenosis. Doppler and Color- flow revealed trace mitral regurgitation. TRICUSPID VALVE The tricuspid valve is normal in structure and function. Doppler and Color Flow revealed no tricuspid valve regurgitation noted. There is no tricuspid valve prolapse or vegetation. There is no tricuspid valve stenosis. PULMONIC VALVE Pulmonic valve not well visualized. GREAT VESSELS The aortic root is normal in size. The ascending aorta is normal in size. The IVC is normal in size and collapses >50% with inspiration. PERICARDIAL EFFUSION There is no evidence of significant pericardial effusion. Critical Notification Critical Value: No <Conclusion> The left ventricle is normal size. The left ventricular systolic function is normal and the ejection fraction is within normal range. The Ejection Fraction is 60-65%. There is no significant aortic valvular stenosis. Doppler and Color Flow revealed no significant aortic regurgitation. Doppler and Color-flow revealed trace mitral regurgitation. Doppler and Color Flow revealed no tricuspid valve regurgitation noted. Signed by : Salvador Fox MD Electronically Approved : 05/29/2018 13:06:28 DICTATED and SIGNED BY: SALVADOR FOX MD DATE: 05/29/18 1306 Patient was asked to keep a blood pressure log and bring it to his next appointment in the outpatient setting. He will be seen for a stress test in the outpatient setting in order to continue with his risk stratification. Very low suspicion for acute coronary syndrome at the present time given the stability of the patient. His symptoms resolve once his blood pressure was controlled using good spirits to be dismissed home CONCERNS WERE ADDRESSED TO THE BEST OF MY ABILITIES Discharge Information Scheduled Atorvastatin Calcium (Lipitor) 80 Mg Tablet, 80 MG PO HS for FOR CHOLESTEROL, # 30 Ref 0 (Reported) Entered as Reported by: KATIE LUNA on 05/29/18923 Last Action: Converted on 05/29/18956 by KATIE LUNA Losartan Potassium (Losartan Potassium) 100 Mg Tablet, 100 MG PO DAILY for HYPERTENSION, (Reported) Entered as Reported by: KATIE LUNA on 05/29/18923 Last Action: Converted on 05/29/18956 by KATIE LUNA Metformin Hcl (Metformin Hcl Er) 1,000 Mg Tab.er.24, 1,000 MG PO DAILYWBKFT for ANTI-DIABETIC, Ref 0 (Reported) Entered as Reported by: ISSAC CARRANZA on 05/28/18 7516 Last Action: Converted on 05/29/18956 by MARIELLE HALE MD May 29, 2018 14:34
[2018-05-29] MEDS ORDERED: ASPI-612 PO (14:50)
--- NOTE | 2018-05-29 15:38 | NUR ---
Discharge Note: NOAH MILIAN [address] Discharge instructions and discharge home medications reviewed with Patient and a copy given. All questions have been answered and understanding verbalized. The following instructions and handouts were given: DASH diet, follow up, CP, how to take your blood pressure, blood pressure record sheet, managing you high blood pressure Discontinued lines and drains: Peripheral IV intact. Patient discharged to Home or Self Care with Spouse via Ambulated
[2018-05-29] MEDS ORDERED: ATORVASTATIN CALCIUM 40 MG TABLET. PO SCH (21:00)
== END 2018-05-29 15:39 | disposition home or self-care (01) | DRG 305 ==
LOC: ER 15:04 → ED HOLD 16:40 → 2 SOUTH 20:07
PROVIDERS: ADMIT Internal Medicine; ATTEND Internal Medicine
DX: I16.0 Hypertensive urgency (principal); I10 Essential (primary) hypertension; E78.00 Pure hypercholesterolemia, unspecified; E11.9 Type 2 diabetes mellitus without complications; F17.210 Nicotine dependence, cigarettes, uncomplicated; I20.9 Angina pectoris, unspecified; K21.9 Gastro-esophageal reflux disease without esophagitis; M19.90 Unspecified osteoarthritis, unspecified site; G47.33 Obstructive sleep apnea (adult) (pediatric); E66.9 Obesity, unspecified; E78.5 Hyperlipidemia, unspecified; Z79.84 Long term (current) use of oral hypoglycemic drugs; Z68.31 Body mass index [BMI] 31.0-31.9, adult
CPT/HCPCS: 36415; 71046; 80048; 80053; 80061; 82553; 83735; 84443; 84484; 85025; 85379; 93005; 93306; 96360; 99406; J7040; 99285-25

== ENCOUNTER → 2020-05-28 | Outpatient (CLI) | payer MEDICARE, OTHER ==
[~2020-05-28] MED LIST changes: +ASPI-886 PO; +ATOR; +LIPITOR80 MG PO; +LOSA100T14 PO; +METF100010 PO; +losartan
--- NOTE | 2020-05-28 10:33 | RAD ---
MR#: [id number] Date of Study: 05/28/2020 Ordering Physician: REBECA PANDEY, Referring Physician: REBECA PANDEY, Tech: Lemuel Self MBA, RDMS, RVT, RDCS, RTR APPROVED REPORT Patient Location: OUT-PATIENT Laterality:Bilateral Indications Bruit Doppler Spectral Velocity Analysis Right Left pCCA 85/28 cm/spCCA 95/30 cm/s mCCA 86/28 cm/smCCA 94/32 cm/s dCCA 76/27 cm/sdCCA 94/37 cm/s Bulb 77/28 cm/sBulb 92/29 cm/s ECA 94/ cm/sECA 89/ cm/s pICA 56/19 cm/spICA 71/26 cm/s Oswaldo 76/32 cm/smICA 71/32 cm/s dICA 61/24 cm/sdICA 81/38 cm/s Vert. 64/ cm/sVert. 52/ cm/s Subcl. 86/ cm/sSubcl. 130/ cm/s ICA/CCA 0.88ICA/CCA 0.85 Findings Grayscale images of the bilateral carotid vessels demonstrate mild diffuse intimal hyperplasia and at herosclerosis. Normal ICA to CCA ratios bilaterally. Overall velocities are within normal limits hartman ggestive of 0 to less than 50% stenosis. Normal antegrade vertebral velocities bilaterally. No sign ificant subclavian disease noted bilaterally. Critical Notification Critical Value: No <Conclusion> 1. No significant carotid occlusive disease bilaterally Signed by : Rebeca Pandey, Electronically Approved : 05/28/2020 10:33:08
--- NOTE | 2020-05-28 10:34 | RAD ---
MR#: [id number] Date of Study: 05/28/2020 Ordering Physician: REBECA PANDEY, Referring Physician: REBECA PANDEY, Tech: Lemuel Self MBA, RDMS, RVT, RDCS, RTR APPROVED REPORT Patient Location: OUT-PATIENT Indications tobacco abuse Duplex Results A/PTransverseLongitudinal Proximal Aorta 2.1cm2.2cm Mid Aorta 2.5cm1.7cm Distal Aorta 1.8cm1.6cm Rt. Common Iliac Artery1.2cm Lt. Common Iliac Artery 1.0cm Doppler VelocityWaveform Proximal Aorta 80.0 cm/sec Aorta Mid. 79.0 cm/sec Distal Aorta 91.0 cm/sec Rt. Common Iliac Uxpepf12.0 cm/sec Lt. Common Iliac Artery 95.0 cm/sec Findings Grayscale images of the abdominal aorta are mildly limited but no obvious aneurysm, dissection is not ed. There is mild diffuse calcified plaque. Normal velocities are noted. Measurements as noted abo ve for the abdominal aorta Critical Notification Critical Value: No <Conclusion> 1. No evidence of abdominal aortic aneurysm. Signed by : Rebeca Pandey, Electronically Approved : 05/28/2020 10:34:02
== END ==
LOC: US 09:20
PROVIDERS: ATTEND Internal Medicine Cardiovascular Disease
DX: I65.23 Occlusion and stenosis of bilateral carotid arteries (principal); I77.3 Arterial fibromuscular dysplasia; I70.0 Atherosclerosis of aorta; Z72.0 Tobacco use
CPT/HCPCS: 76770; 93880